=== PATIENT | male | born 1980 | race Caucasian/White ===

== ENCOUNTER 2017-08-19 20:12 | Emergency (ER) | payer BC ==
[2017-08-19 20:31] VITALS: BP 106/70
[2017-08-19] MEDS ORDERED: Oseltamivir CAP* 75 MG CAP PO ONE (21:32)
--- NOTE | 2017-08-19 21:40 | UC ---
Giorgio Landry Gabriel, scribed for Dmitry Burt MD on 08/19/17 at 2105 . FLU HPI - HPI Summary HPI Summary: This patient is a 37 year old M presenting to [facility] [place] accompanied by his partner with a chief complaint of a flu like illness since this afternoon. The patient rates the pain 5/10 in severity. Patient reports chills, fever, cough, fatigue, rhinorrhea, sinus congestion, and cough. Patient has low WBC and was told that if he gets a fever he should be seen. The reason for his low WBC is unknown and is seeing doctor Leah for this. - History of Current Complaint Chief Complaint: UCGeneralIllness Stated Complaint: FEVER, CHILLS Time Seen by Provider: 08/19/17 20:50 Hx Obtained From: Patient Onset/Duration: Lasting Hours, Still Present Severity Currently: Moderate Severity Initially: Moderate Pain Intensity: 5 Pain Scale Used: 0-10 Numeric Associated Signs & Symptoms: Positive: Fever, F/C, Myalgia, Cough, Nasal Congestion - Allergy/Home Medications Allergies/Adverse Reactions: Allergies Allergy/AdvReac Type Severity Reaction Status Date / Time Penicillins Allergy Hives Verified 08/19/17 20:32 PMH/Surg Hx/FS Hx/Imm Hx Other History Of: Negative For: HIV, Hepatitis B, Hepatitis C - Surgical History Surgical History: None - Family History Known Family History: Negative: Cardiac Disease, Hypertension, Diabetes, Renal Disease, Respiratory Disease, Seizure Disorder, Blood Disorder - Social History Occupation: Student Lives: With Family Alcohol Use: Occasionally Substance Use Type: None Smoking Status (MU): Never Smoked Tobacco Review of Systems Constitutional: Fever, Chills, Fatigue ENT: Nasal Discharge, Sinus Congestion Respiratory: Cough All Other Systems Reviewed And Are Negative: Yes Physical Exam Triage Information Reviewed: Yes Vital Signs: Initial Vital Signs Temp 100.4 F 08/19/17 20:22 Pulse 99 08/19/17 20:22 Resp 20 08/19/17 20:22 BP 106/70 08/19/17 20:22 Pulse Ox 100 08/19/17 20:22 Vital Signs Reviewed: Yes - Additional Comments VITAL SIGNS: Reviewed. GENERAL: Patient is a well developed and nourished Mwho is lying comfortable in the stretcher. Patient is not in any acute respiratory distress. HEAD AND FACE: Normocephalic EYES: PERRLA, EOMI x 2. EARS: Hearing grossly intact. MOUTH: Oropharynx within normal limits. NECK: Supple, trachea is midline, no adenopathy, no JVD, no carotid bruit. CHEST: Symmetric, no tenderness at palpation LUNGS: Clear to auscultation bilaterally. No wheezing or crackles. CVS: Regular rate and rhythm, S1 and S2 present, no murmurs or gallops appreciated. ABDOMEN: Soft, non-tender. Bowel sounds are normal. No abdominal abnormal pulsations. EXTREMITIES: Full ROM in all major joints, no edema, no cyanosis or clubbing. NEURO: Alert and oriented x 3. No acute neurological deficits. Speech is normal and follows commands. SKIN: Dry and warm Flu Course/Dx - Course Course Of Treatment: The patient was negative for step and influenza B but positive for influenza A. I discussed all the findings and test results with the patient. Pt was instructed to return to the urgent care or go to ER immediately if any of the symptoms return or worsens. Plan of care was discussed with the patient and pt understands and agrees. All questions were answered to patient satisfaction. There were no further complaints or concerns. Patient was diagnosed with influenza A after a positive swab. Medications administered. - Differential Dx/Diagnosis Differential Diagnosis/HQI/PQRI: Bronchitis, Broncholiolitis, Influenza, Pneumonia, Upper Respiratory Infection Provider Diagnoses: influenza A Discharge - Discharge Plan Condition: Stable Disposition: HOME Prescriptions: Oseltamivir CAP* [Tamiflu CAP*] 75 mg PO BID #10 cap Patient Education Materials: Influenza (ED), Influenza (DC) Referrals: Mitchel Lynn MD [Primary Care Provider] - Additional Instructions: Take medications as instructed Increase your fluid intake Return to the if symptoms worsen The documentation as recorded by the Giorgio guo Gabriel accurately reflects the service I personally performed and the decisions made by , Dmitry Burt MD.
== END 2017-08-19 21:45 | disposition home or self-care (01) ==
LOC: UCEAST 20:12
DX: J10.1 Influenza due to other identified influenza virus with other respiratory manifestations (principal)
CPT/HCPCS: 87502; 87651; 99212; A9270-GY; G0463